=== PATIENT | male | born 1995 | race Caucasian/White ===

== ENCOUNTER 2023-10-16 00:31 | Emergency (ER) | payer OTHER ==
[~2023-10-16] VITALS: Ht 167.6 cm; Wt 81.6 kg
[2023-10-16] MEDS: hydrOXYzine PAMOATE 25 MG CAP PO STA (00:43)
[2023-10-16] MEDS: OLANZapine 5 MG ODT SL ONE (00:45)
[2023-10-16 00:52] VITALS: BP 140/96; PULSE 99; RESP 18; TEMP 97.8; O2SAT 97
[2023-10-16 00:54] VITALS: O2SAT 97
== END 2023-10-16 01:19 | disposition home or self-care (01) ==
LOC: MED 00:31
DX: R45.1 Restlessness and agitation (principal); R45.6 Violent behavior; F12.90 Cannabis use, unspecified, uncomplicated
CPT/HCPCS: 99283; Q0177